=== PATIENT | female | born 2000 | race Two or more races ===

== ENCOUNTER 2019-09-30 14:12 | Emergency (ER) | payer OTHER ==
--- NOTE | 2019-09-30 14:34 | ER Document Report ---
ED Medical Screen (RME) - General Chief Complaint: Abdominal Cramping Stated Complaint: ABDOMINAL PAIN Time Seen by Provider: 09/30/19 14:29 Notes: HPI: 18-year-old female presenting to the emergency department for evaluation of fairly sudden onset of pelvic pain today. [place] fine yesterday. She is on her menstrual cycle currently. No history of ovarian cysts but states there is a family history of ovarian cyst. Woke up this morning with onset of pelvic pain across the entire pelvis with some radiation into the right lower back. Patient did take Voltaren at home without resolution of the discomfort, went to an urgent care who referred her to the emergency department for evaluation. I have greeted and performed a rapid initial assessment of this patient. A comprehensive ED assessment and evaluation of the patient, analysis of test results and completion of the medical decision making process will be conducted by additional ED providers PHYSICAL EXAMINATION: Mildly uncomfortable. There is tenderness across the pelvis bilaterally and suprapubic on palpation I have greeted and performed a rapid initial assessment of this patient. A comprehensive ED assessment and evaluation of the patient, analysis of test results and completion of medical decision making process will be conducted by an additional ED providers. - Related Data Allergies/Adverse Reactions: No Known Allergies Allergy (Verified 09/30/19 14:20) Past Medical History - Social History Frequency of alcohol use: None Drug Abuse: None Physical Exam - Vital signs Vitals: Temp Pulse Resp BP Pulse Ox 98.2 F 56 L 16 143/65 H 100 09/30/19 14:16 09/30/19 14:16 09/30/19 14:16 09/30/19 14:16 09/30/19 14:16 Course - Vital Signs Vital signs: Temp Pulse Resp BP Pulse Ox 98.2 F 56 L 16 143/65 H 100 09/30/19 14:16 09/30/19 14:16 09/30/19 14:16 09/30/19 14:16 09/30/19 14:16
--- NOTE | 2019-09-30 16:07 | RADIOLOGY REPORT (SQ) ---
EXAM DESCRIPTION: U/S NON OB PEL TV W/DOPPLER IMAGES COMPLETED DATE/TIME: 09/30/2019 3:42 pm REASON FOR STUDY: pelvic pain COMPARISON: None. TECHNIQUE: Dynamic and static grayscale images acquired of the pelvis via transvaginal approach and recorded on PACS. Additional selected color Doppler and spectral images recorded. LIMITATIONS: None. FINDINGS: UTERUS: Contour normal. No mass. ENDOMETRIAL STRIPE: No focal or generalized thickening. No masses. CERVIX: 2.7 cm. No nabothian cysts. RIGHT OVARY AND DOPPLER: Normal size. No worrisome masses. Normal arterial vascular flow without evid ence for torsion. LEFT OVARY AND DOPPLER: Normal size. No worrisome masses. Normal arterial vascular flow without evide nce for torsion. FREE FLUID: Small amount of free fluid. OTHER: No other significant finding. MEASUREMENTS: UTERUS: 7 x 4.3 x 5.1 cm. ENDOMETRIAL STRIPE: 9 mm. RIGHT OVARY: 3.8 x 3 x 2.2 cm. LEFT OVARY: 4.1 x 2.5 x 2 cm. IMPRESSION: NORMAL TRANSVAGINAL PELVIC ULTRASOUND. TECHNICAL DOCUMENTATION: JOB ID: [id number] [employer]- All Rights Reserved Rev-11/09 Reading location - IP/workstation name: [email or web address]
[2019-09-30 16:12] LABS: ABSOLUTE LYMPHOCYTES (AUTO) 2.1 10^3/uL (0.5-4.7); ABSOLUTE MONOCYTES (AUTO) 0.5 10^3/uL (0.1-1.4); ABSOLUTE NEUT (AUTO) 8.1 10^3/uL (1.7-8.2); BASOPHILS % (AUTO) 0.4 % (0-2); EOSINOPHILS % (AUTO) 0.3 % (0-6); HEMATOCRIT 37.6 % (36.0-47.0); LYMPHOCYTES % (AUTO) 19.7 % (13-45); MEAN CORPUSCULAR HEMOGLOBIN 27.1 pg (27.0-33.4); MEAN CORPUSCULAR HGB CONC 34.7 g/dL (32.0-36.0); MEAN CORPUSCULAR VOLUME 78 fl (80-97); MONOCYTES % (AUTO) 4.9 % (3-13); PLATELET COUNT 217 10^3/uL (150-450); RED BLOOD COUNT 4.81 10^6/uL (3.72-5.28); RED CELL DISTRIBUTION WIDTH 14.3 % (11.5-14.0); SEGMENTED NEUTROPHILS % (AUTO) 74.7 % (42-78); TOTAL CELLS COUNTED % (AUTO) 100 %; WHITE BLOOD COUNT 10.8 10^3/uL (4.0-10.5)
[2019-09-30 16:16] LABS: APPEARANCE,URINE SLIGHTLY-CLOUDY; BILIRUBIN,URINE NEGATIVE (NEGATIVE); COLOR,URINE YELLOW; GLUCOSE, URINE NEGATIVE (NEGATIVE); KETONES,URINE NEGATIVE (NEGATIVE); LEUKOCYTE ESTERASE,URINE TRACE (NEGATIVE); NITRITE,URINE NEGATIVE (NEGATIVE); PROTEIN,URINE 30 mg/dL (NEGATIVE); URINE SPECIFIC GRAVITY 1.021; UROBILINOGEN,URINE NEGATIVE mg/dL (<2.0)
--- NOTE | 2019-09-30 16:21 | ER Document Report ---
ED GI/ - General Chief Complaint: Abdominal Cramping Stated Complaint: ABDOMINAL PAIN Time Seen by Provider: 09/30/19 14:29 Primary Care Provider: [facility] [Provider Group] - Follow up as needed ALMAZ GRAMAJO MD [ACTIVE STAFF] - Follow up as needed Mode of Arrival: Ambulatory Information source: Patient Notes: 18-year-old female presented to ED for complaint of pelvic pain that started this morning. She states her menstrual cycle started this morning it is just worse than usual and the bleeding is darker and more painful. She states she do es frequently have pain with her menstrual cycles this just seems worse than normal. She states she did take some Voltaren at home without any relief went to the urgent care and they sent her to the emergency room. Patient is alert oriented respirations regular nonlabored speaking in full sentences she is able to walk with a even steady gait. Patient did have tenderness to palpation to the left side of her pelvic area none to the right on examination. She has had an ultrasound which shows normal transvaginal pole pelvic ultrasound. Left and right ovaries have no cyst no torsion normal flow no worrisome masses. There are no nabothian cyst. Uterus is 7 x 4.3 x 5.1 cm. Patient has normal menstrual cycle bleeding - HPI Patient complains to provider of: Pelvic pain, Vaginal bleeding Onset: This morning Timing/Duration: Gradual Quality of pain: Cramping Severity at maximum: Severe Severity in ED: Severe Pain Level: 5 Location: Pelvis Vaginal bleeding (Compared to normal period): Similar - Days bleeding is darker than normal LMP: Started this morning OB ultrasound done: Yes Associated symptoms: Other Exacerbated by: Movement - Pelvic pain, Walking Relieved by: Denies Similar symptoms previously: Yes Recently seen / treated by doctor: No - Related Data Allergies/Adverse Reactions: No Known Allergies Allergy (Verified 09/30/19 14:20) Past Medical History - General Information source: Patient - Social History Smoking Status: Former Smoker Frequency of alcohol use: None Drug Abuse: None Lives with: Family Family History: Reviewed & Not Pertinent Patient has suicidal ideation: No Patient has homicidal ideation: No - Past Medical History Cardiac Medical History: Reports: None Pulmonary Medical History: Reports: None EENT Medical History: Reports: None Neurological Medical History: Reports: None Endocrine Medical History: Reports: None Renal/ Medical History: Reports: None Malignancy Medical History: Reports: None GI Medical History: Reports: None Musculoskeletal Medical History: Reports None Skin Medical History: Reports None Psychiatric Medical History: Reports: None Traumatic Medical History: Reports: None Infectious Medical History: Reports: None Surgical Hx: Negative Past Surgical History: Reports: None Review of Systems - Review of Systems Constitutional: No symptoms reported EENT: No symptoms reported Cardiovascular: No symptoms reported Respiratory: No symptoms reported Gastrointestinal: No symptoms reported Genitourinary: No symptoms reported Female Genitourinary: Vaginal bleeding, Other - Pelvic pain Musculoskeletal: No symptoms reported Skin: No symptoms reported Hematologic/Lymphatic: No symptoms reported Neurological/Psychological: No symptoms reported Physical Exam - Vital signs Vitals: Temp Pulse Resp BP Pulse Ox 98.2 F 56 L 16 143/65 H 100 09/30/19 14:16 09/30/19 14:16 09/30/19 14:16 09/30/19 14:16 09/30/19 14:16 Interpretation: Normal - General General appearance: Appears well, Alert - HEENT Head: Normocephalic, Atraumatic Eyes: Normal Pupils: PERRL - Respiratory Respiratory status: No respiratory distress Chest status: Nontender Breath sounds: Normal Chest palpation: Normal - Cardiovascular Rhythm: Regular Heart sounds: Normal auscultation Murmur: No - Abdominal Inspection: Normal Distension: No distension Bowel sounds: Normal Tenderness: Nontender Organomegaly: No organomegaly - Genitourinary External exam: Normal Speculum exam: Cervix open Vaginal bleeding: Moderate Bimanuel exam: Adnexal tenderness. No: Cervical motion tender, Bladder/Urethral tender, Adnexal mass, Uterus enlarged - Back Back: Normal, Nontender - Extremities General upper extremity: Normal inspection, Nontender, Normal color, Normal ROM, Normal temperature General lower extremity: Normal inspection, Nontender, Normal color, Normal ROM, Normal temperature, Normal weight bearing. No: Dexter's sign - Neurological Neuro grossly intact: Yes Cognition: Normal Orientation: AAOx4 Oziel Coma Scale Eye Opening: Spontaneous Oziel Coma Scale Verbal: Oriented Oziel Coma Scale Motor: Obeys Commands [place] Coma Scale Total: 15 Speech: Normal Motor strength normal: LUE, RUE, LLE, RLE Sensory: Normal - Psychological Associated symptoms: Normal affect, Normal mood - Skin Skin Temperature: Warm Skin Moisture: Dry Skin Color: Normal Course - Re-evaluation Re-evalutation: 09/30/19 17:45 Discussed labs and ultrasound with patient. Exam is consistent with a normal menstrual cycle that is painful. Patient has been given a copy of the lab results and the ultrasound result. She has been instructed to please follow-up with her [facility] for further testing and to discuss treatment plans. Patient has been given a list of [facility] that she can call. Patient was able to verbalize understanding and agreement treatment plan patient was discharged home. - Vital Signs Vital signs: Temp Pulse Resp BP Pulse Ox 98.0 F 58 L 16 138/60 H 100 09/30/19 17:50 09/30/19 17:50 09/30/19 17:50 09/30/19 17:50 09/30/19 17:50 - Laboratory Result Diagrams: 09/30/19 16:00 09/30/19 16:00 Laboratory results interpreted by me: 09/30/19 09/30/19 16:00 16:00 WBC 10.8 H MCV 78 L RDW 14.3 H Urine Protein 30 H Urine Blood LARGE H Ur Leukocyte Esterase TRACE H Urine Ascorbic Acid 40 H - Diagnostic Test Radiology reviewed: Image reviewed, Reports reviewed Discharge - Discharge Clinical Impression: Pelvic pain, Painful menstrual cycle Condition: Stable Disposition: HOME, SELF-CARE Additional Instructions: VAGINAL BLEEDING: You are having an episode of painful menstrual bleeding. Your ultrasound is normal at this time. Your lab I have discussed with you and given the reports of your labs. As we described you will need to follow-up with your [facility] to describe treatments for painful menstrual cycle. There is no signs of ovarian cyst at this time. There is no bacterial vaginosis, trichomonas, or vaginal yeast infections at this time. Your gonorrhea and Chlamydia results will not be back for several hours you can call [phone] tomorrow for those results. NORMAL EXAM AND WORKUP: At this time, except for vaginal bleeding, your examination and workup show no significant abnormality. No significant abnormal physical findings were noted. All laboratory, EKG, and imaging (x-ray, CT scans, ultrasound) studies that were ordered show no significant abnormality. Although your examination and all studies that were ordered showed no significant abnormal finding, there are no examinations and no studies that are 100% accurate. There is always the possibility that some abnormality could exist and not be detected with physical examination or within the limits and capabilities of laboratory and other studies. You should return or follow up as you were instructed on your visit today for further evaluation if your symptoms do not resolve. Ibuprofen Ibuprofen is an excellent, safe drug for pain control. In addition, it has potent antiinflammatory effects which are beneficial, especially in the treatment of injuries, arthritis, or tendonitis. It's best to take ibuprofen with food. Persons with ulcer disease or allergy to aspirin should notify their physician of this before taking ibuprofen. Take the medication exactly as prescribed. Don't take additional doses unless instructed to do so by your doctor. If you develop wheezing, shortness of breath, hives, faintness, stomach pain, vomiting, or dark black stools, return for re-evaluation at once. FOLLOW-UP CARE: If you have been referred to a physician for follow-up care, call the physician s office for an appointment as you were instructed or within the next two days. If you experience worsening or a significant change in your symptoms (very heavy bleeding with large clots of blood, passage of tissue, more severe abdominal / pelvic pain or cramping, feeling faint or severe weakness, fever, etc.), notify the physician immediately or return to the Emergency Department at any time for re-evaluation. OBSTETRIC-GYNECOLOGIC (OB-SUBMARINE ELEMENT COORDINATOR) PHYSICIANS IN [place]: [facility] [address] [place] [address] [phone] Forms: Elevated Blood Pressure Referrals: [facility] [Provider Group] - Follow up as needed ALMAZ GRAMAJO MD [ACTIVE STAFF] - Follow up as needed
[2019-09-30 16:29] LABS: ALBUMIN 4.4 g/dL (3.7-5.6); ALKALINE PHOSPHATASE 84 U/L (50-135); ANION GAP 8 (5-19); ASPARTATE AMINO TRANSFERASE 25 U/L (5-30); BILIRUBIN,DIRECT 0.2 mg/dL (0.0-0.4); BILIRUBIN,TOTAL 0.3 mg/dL (0.2-1.3); BLOOD UREA NITROGEN 16 mg/dL (7-20); CALCIUM 9.8 mg/dL (8.4-10.2); CARBON DIOXIDE 24 mmol/L (22-30); CHLORIDE 105 mmol/L (98-107); GLUCOSE 88 mg/dL (75-110); POTASSIUM 4.4 mmol/L (3.6-5.0); TOTAL PROTEIN 7.4 g/dL (6.3-8.2)
[2019-09-30 17:04] LABS: BACTERIA (WET MOUNT) 4+ BACTERIA SEEN; EPITHELIALS (WET MOUNT) 3+ EPITHELIALS SEEN; RBCS (WET MOUNT) 4+ RBCS SEEN; T.VAGINALIS (WET MOUNT) NO TRICHOMONAS SEEN; WBCS (WET MOUNT) 2+ WBCS SEEN; YEAST (WET MOUNT) NO YEAST SEEN
[2019-09-30 17:52] VITALS: BP 138/60
[2019-09-30 18:35] LABS: CHLAM PCR NOT DETECTED (NOT DETECT)
== END 2019-09-30 17:50 | disposition home or self-care (01) ==
LOC: ER 14:12
DX: R10.2 Pelvic and perineal pain (principal); N94.6 Dysmenorrhea, unspecified; R10.9 Unspecified abdominal pain; N93.8 Other specified abnormal uterine and vaginal bleeding
CPT/HCPCS: 36415; 76830; 80053; 81001; 81025; 85025; 87210; 87491; 87591; 93976; 99284